=== PATIENT | female | born 1955 | race Caucasian/White ===

== ENCOUNTER 2017-02-17 07:21 | Day surgery (SDC) | payer BC ==
[2017-02-14 08:55] VITALS: BMI 38.0
[~2017-02-17 07:21] MED LIST: LACTATED RINGERS 1,000 ML IV SCH
[2017-02-17 07:34] VITALS: TEMP 98.2
[2017-02-17] MEDS ORDERED: PROPOFOL 10 MG/ML 20 ML VIAL IV ONE (08:14)
--- NOTE | 2017-02-17 08:42 | P.PCN ---
Date of Procedure: 02/17/17 Preoperative Diagnosis: Postoperative Diagnosis: Procedure(s) Performed: Procedure: Total colonoscopy. Preoperative diagnosis: Screening for neoplasia area Postoperative diagnosis: Diverticulosis with no evidence of acute diverticulitis , strictures, polyps or cancer. Preparation: HalfLytely prep. Sedation: Was provided by anesthesia. Brief clinical history: The patient is a 61-year-old female who is referred for this evaluation for screening for neoplasia. She had a prior exam many years back. At this time, she has no abdominal complaints, bleeding or anemia. No family history of colon cancer. Procedure: With the patient on her left lateral decubitus position and after informed consent and adequate sedation, the perianal area was inspected and it did not show any fissures or fistulas. There were no masses felt on digital rectal examination. The Olympus CFQ 160L video colonoscope was then inserted in the rectum in the usual fashion and advanced to the cecum. There were multiple diverticular orifices seen scattered along the length of the bowel mostly on the left side with fewer and smaller orifices around the hepatic flexure and on the right side. The mucosa appeared healthy. There was no evidence of acute diverticulitis or strictures. No polyps or tumors were seen. I retroflexed the endoscope in the rectum before the endoscope was withdrawn. The patient tolerated the procedure well. Plan: The patient was reassured. Discussed dietary measures. She will follow- up with you as planned and I recommended repeat exam in 10 years. Implants: Indications for Procedure: Operative Findings: Description of Procedure:
[2017-02-17] MEDS ORDERED: ONDANSETRON 4 MG/2 ML VIAL IVP ONE (08:58)
[2017-02-17 09:00] VITALS: RESP 16
[2017-02-17 09:30] VITALS: BP 131/82; PULSE 63
== END 2017-02-17 09:33 | disposition home or self-care (01) ==
LOC: ORWHC2ENDO 07:21
DX: Z12.11 Encounter for screening for malignant neoplasm of colon (principal); K57.30 Diverticulosis of large intestine without perforation or abscess without bleeding; E07.9 Disorder of thyroid, unspecified; I10 Essential (primary) hypertension; E78.5 Hyperlipidemia, unspecified; Z79.899 Other long term (current) drug therapy; Z88.0 Allergy status to penicillin
CPT/HCPCS: J2405; J2704; G0121

== ENCOUNTER → 2017-02-23 | Outpatient (CLI) | payer BC ==
--- NOTE | 2017-02-25 08:23 | MM ---
Reason for exam: screening (asymptomatic). Last mammogram was performed 1 year and 1 month ago. History: Patient is postmenopausal. Family history of breast cancer in maternal aunt. Physical Findings: A clinical breast exam by your physician is recommended on an annual basis and results should be correlated with mammographic findings. MG 3D Screening Mammo W/Cad Bilateral CC and MLO view(s) were taken. Prior study comparison: February 03, 2016, bilateral MG 3d screening mammo w/cad. September 02, 2014, bilateral MG screening mammo w CAD. August 31, 2012, bilateral digital screening mammo w/CAD. August 30, 2011, bilateral digital screening mammo w/CAD. The breast tissue is heterogeneously dense. This may lower the sensitivity of mammography. Stable distorted tissues superior right breast. No significant changes when compared with prior studies. ASSESSMENT: Negative, BI-RAD 1 RECOMMENDATION: Routine screening mammogram of both breasts in 1 year.
== END | disposition home or self-care (01) ==
LOC: RADMAMWWP 10:18
PROVIDERS: ATTEND Family Medicine
DX: Z12.31 Encounter for screening mammogram for malignant neoplasm of breast (principal)
CPT/HCPCS: 77063; G0202

== ENCOUNTER → 2018-08-17 | Outpatient (CLI) | payer MEDICARE ==
--- NOTE | 2018-08-24 14:16 | MM ---
Reason for exam: screening (asymptomatic). Last mammogram was performed 1 year and 6 months ago. History: Patient is postmenopausal. Family history of breast cancer in maternal aunt. MG 3D Screening Mammo W/Cad Bilateral CC and MLO view(s) were taken. Prior study comparison: February 23, 2017, bilateral MG 3d screening mammo w/cad. February 03, 2016, bilateral MG 3d screening mammo w/cad. There is a 10 x 4 mm equal oval possibly circumscribed density in the left subareolar position 2 cm from the nipple. These findings are changed when compared to prior studies. ASSESSMENT: Incomplete: need additional imaging evaluation, BI-RAD 0 RECOMMENDATION: Special view mammogram and treatment plan of the left breast.
== END | disposition home or self-care (01) ==
LOC: RADMAMWWP 07:46
PROVIDERS: ATTEND Family Medicine
DX: Z12.31 Encounter for screening mammogram for malignant neoplasm of breast (principal)
CPT/HCPCS: 77063; 77067

== ENCOUNTER → 2018-09-12 | Outpatient (CLI) | payer MEDICARE ==
--- NOTE | 2018-09-12 10:23 | MM ---
Reason for exam: additional evaluation requested from abnormal screening. Last mammogram was performed 1 month ago. History: Patient is postmenopausal. Family history of breast cancer in maternal aunt. Physical Findings: Nurse Summary: 0.5cm nodule in the left breast at nipple (nurse dw). MG 3D Work Up W/Cad LT Spot compression CC, spot compression MLO, and ML view(s) were taken of the left breast. Prior study comparison: August 17, 2018, bilateral MG 3d screening mammo w/cad. February 23, 2017, bilateral MG 3d screening mammo w/cad. Finding: There is a 8 mm oval mass in the subareolar position of the left breast, persists on additional views. These results were verbally communicated with the patient and result sheet given to the patient on 09/12/18. ASSESSMENT: Incomplete: need additional imaging evaluation, BI-RAD 0 RECOMMENDATION: Ultrasound of the left breast.
--- NOTE | 2018-09-12 10:25 | USB ---
Reason for exam: additional evaluation requested from abnormal screening. History: Patient is postmenopausal. Family history of breast cancer in maternal aunt. US Breast Workup Limited LT Left limited breast ultrasound including focal area of concern, retroareolar and axilla demonstrates a 1.0 x 0.8 x 0.4cm oval, irregular, mixed, hypoechoic lesion at 9 o'clock. These results were verbally communicated with the patient and result sheet given to the patient on 09/12/18. ASSESSMENT: Suspicious, BI-RAD 4 RECOMMENDATION: Ultrasound core biopsy of the left breast. (FNA +/- Core Biopsy) Called Dr. Asher with mammographic findings and has scheduled an appointment for the patient for 10/12/18 at 10:[address] Asher. Biopsy scheduled for 10/02/18 at 2 o'clock. PRELIMINARY REPORT CALLED AND FAXED TO DR. ASHER ON 09/12/18.
== END | disposition home or self-care (01) ==
LOC: RADMAMWWP 08:34
PROVIDERS: ATTEND Family Medicine
DX: R92.8 Other abnormal and inconclusive findings on diagnostic imaging of breast (principal)
CPT/HCPCS: 77065; 76642; G0279; 77061

== ENCOUNTER → 2018-10-02 | Day surgery (SDC) | payer MEDICARE ==
[2018-10-02 13:30] VITALS: RESP 16; BMI 38.7
[2018-10-02 14:33] VITALS: BP 129/80; PULSE 77; TEMP 98.2
--- NOTE | 2018-10-03 04:15 | USB ---
EXAMINATION TYPE: US biopsy breast VAD LT, Post procedure MG diagnostic mammo LT wo CAD DATE OF EXAM: 10/02/2018 CLINICAL HISTORY: 63-year-old female R92.8 Abnormal Mammogram. TECHNIQUE: Ultrasound guided core biopsy of left breast. COMPARISON: 09/12/2018 FINDINGS: The procedure of ultrasound guided core biopsy was explained to the patient. Benefits, alternatives, and risks were discussed. An informed consent was then obtained. The patient was placed in supine positioning for imaging and for the procedure. The overlying skin was prepped and draped in usual sterile fashion. Lidocaine buffered with bicarbonate was used as anesthetic into the skin and subcutaneous tissue up to area of concern in the 9:00 subareolar left breast. Under ultrasound guidance, a 13-gauge vacuum-assisted mammotome a lead biopsy gun was used to obtain 4 core samples. Following this, a ribbon clip was left in lesion. The patient tolerated the procedure well without any immediate complication. The patient was kept in the radiology department for short stay after the procedure and then discharged home in stable condition. Post procedure mammogram shows clip at the site of mammographic focal asymmetry. IMPRESSION: Successful, uncomplicated ultrasound guided core biopsy of area of concern in the left subareolar 9:00 position, full pathology results to follow. Pathology Results: Benign LEFT BREAST AT 9:00 POSITION, NEEDLE CORE BIOPSIES: Benign breast parenchyma consistent with fibroadenoma and fibrocystic changes. Recommendation Follow up mammogram of the left breast in 6 months. CHRISTEL
== END ==
LOC: RADUSWWP 12:47
PROVIDERS: ATTEND Surgery
DX: D24.2 Benign neoplasm of left breast (principal)
CPT/HCPCS: 19083; 77065; 88305; A4648; J2001

== ENCOUNTER → 2019-03-26 | Outpatient (CLI) | payer MEDICARE ==
--- NOTE | 2019-03-26 11:37 | MM ---
Reason for exam: follow-up at short interval from prior study. Last mammogram was performed 6 months ago. History: Patient is postmenopausal. Family history of breast cancer in maternal aunt at age 50. Benign US biopsy breast VAD LT of the left breast, October 02, 2018. Physical Findings: Nurse did not find any significant physical abnormalities on exam. MG 3D Diag Mammo W/Cad LT CC and MLO view(s) were taken of the left breast. Prior study comparison: October 02, 2018, left breast MG diagnostic mammo LT wo CAD. September 12, 2018, left breast MG 3d work up w/cad LT. The breast tissue is heterogeneously dense. This may lower the sensitivity of mammography. There is no discrete abnormality including area of concern. No significant new findings when compared with previous films. These results were verbally communicated with the patient and result sheet given to the patient on 03/26/19. ASSESSMENT: Negative, BI-RAD 1 RECOMMENDATION: Return to routine screening mammogram schedule for both breasts. Back on schedule for August 2019.
== END | disposition home or self-care (01) ==
LOC: RADMAMWWP 10:53
PROVIDERS: ATTEND Surgery
DX: R92.8 Other abnormal and inconclusive findings on diagnostic imaging of breast (principal)
CPT/HCPCS: 77061; 77065

== ENCOUNTER → 2019-10-31 | Outpatient (CLI) | payer MEDICARE ==
[~2019-10-31] MED LIST changes: -LACTATED RINGERS 1,000 ML IV SCH; +REGADENOSON 0.4 MG/5 ML SYRINGE IV ONE
--- NOTE | 2019-10-31 12:09 | NM ---
EXAMINATION TYPE: NM stress lexiscan cardiolite DATE OF EXAM: 10/31/2019 COMPARISON: NONE HISTORY: Chest pain TECHNIQUE: After the intravenous administration of 9.9 mCi Tc 99m Sestamibi - Cardiolite resting SPE CT images acquired 55 minutes post injection. The patient received 0.4mg Lexiscan, 25.8 mCi Tc 99m Sestamibi - Stress images obtained [address] injection FINDINGS: Review of stress and rest SPECT images demonstrates no distinct perfusion abnormality. Gated analysi s shows normal wall motion with an estimated left ventricular ejection fraction of 67 %. Abnormal TID of 1.27. IMPRESSION: Abnormal TID that can be seen in balanced 3 vessel ischemia or cardiomyopathy. No focal r eversible ischemic defect seen.
--- NOTE | 2019-10-31 18:20 | EST ---
EXERCISE STRESS DATE OF STUDY: 10/31/2019 AGE: 64 SEX: Female. HT: 5'6" WT: 210 pounds PROTOCOL: Lexiscan Cardiolite STAGE: DURATION OF EXERCISE: HEART RATE REST: 65 BLOOD PRESSURE REST: 142/82 MAXIMUM HEART RATE ACHIEVED: 105 MAXIMUM BLOOD PRESSURE: 158/92 85% MPHR: 131 100% MPHR: 154 METS: INDICATIONS: Chest pain, palpitations. CLINICAL INFORMATION: STRESS DATA: Heart rate 65, pressure 142/82 mmHg. Baseline EKG showed sinus mechanism with RBBB. The patient was given 0.4 mg of Lexiscan over 15 seconds per protocol. Max heart rate was 105 beats per minute. Maximum pressure was 158/92 mmHg. Clinically the patient did not have any symptoms and the EKG did not show any significant ST or T-wave abnormalities concerning for ischemia. CONCLUSION: 1. Nondiagnostic electrocardiogram stress testing in response to Lexiscan. 2. Please follow up on the Cardiolite portion on separate report from Radiology Department. MMODL / IJN: [id number] /
== END | disposition home or self-care (01) ==
LOC: RADNMMAIN 08:34
PROVIDERS: ATTEND Family Medicine
DX: R94.39 Abnormal result of other cardiovascular function study (principal); R00.2 Palpitations; R07.9 Chest pain, unspecified
CPT/HCPCS: 93017; 78452; A9500; J2785

== ENCOUNTER → 2020-05-09 | Outpatient (CLI) | payer MEDICARE ==
--- NOTE | 2020-05-12 13:57 | MM ---
Reason for exam: screening (asymptomatic). Last mammogram was performed 1 year and 1 month ago. History: Patient is postmenopausal. Family history of breast cancer in maternal aunt at age 50. Benign US biopsy breast VAD LT of the left breast, October 02, 2018. Physical Findings: A clinical breast exam by your physician is recommended on an annual basis and results should be correlated with mammographic findings. MG 3D Screening Mammo W/Cad Bilateral CC and MLO view(s) were taken. Prior study comparison: March 26, 2019, left breast MG 3d diag mammo w/cad LT. October 02, 2018, left breast MG diagnostic mammo LT wo CAD. The breast tissue is heterogeneously dense. This may lower the sensitivity of mammography. Finding: There is an equal density (isodense), lobulated mass located 6 cm from the nipple in the inner quadrant, middle position of the right breast on CC view. Previous mammotome biopsy in the left breast. There is a focal density left MLO view upper portion 5 cm from the nipple. New finding since March 26, 2019 and October 02, 2018. ASSESSMENT: Incomplete: need additional imaging evaluation, BI-RAD 0 RECOMMENDATION: Special view mammogram of both breasts. If lesion persists on supplemental views, image directed ultrasound is recommended. [facility] will attempt to contact patient to return for supplemental views and ultrasound if indicated.
== END | disposition home or self-care (01) ==
LOC: RADMAMWWP 14:42
PROVIDERS: ATTEND Family Medicine
DX: Z12.31 Encounter for screening mammogram for malignant neoplasm of breast (principal)
CPT/HCPCS: 77063; 77067

== ENCOUNTER → 2020-05-16 | Outpatient (CLI) | payer MEDICARE ==
--- NOTE | 2020-05-16 10:24 | MM ---
Reason for exam: additional evaluation requested from abnormal screening. Last mammogram was performed less than 1 month ago. History: Patient is postmenopausal. Family history of breast cancer in maternal aunt at age 50. Benign US biopsy breast VAD LT of the left breast, October 02, 2018. Physical Findings: Nurse did not find any significant physical abnormalities on exam. MG 3D Work Up W/Cad FABIO Bilateral spot compression CC and spot compression MLO view(s) were taken. Prior study comparison: May 09, 2020, bilateral MG 3d screening mammo w/cad. March 26, 2019, left breast MG 3d diag mammo w/cad LT. There is no discrete abnormality including area of concern. These results were verbally communicated with the patient and result sheet given to the patient on 05/16/20. ASSESSMENT: Probably benign, BI-RAD 3 RECOMMENDATION: Follow-up diagnostic mammogram of both breasts in 6 months.
== END | disposition home or self-care (01) ==
LOC: RADMAMWWP 09:31
PROVIDERS: ATTEND Family Medicine
DX: R92.8 Other abnormal and inconclusive findings on diagnostic imaging of breast (principal)
CPT/HCPCS: 77066; G0279; 77062

== ENCOUNTER → 2020-12-03 | Outpatient (CLI) | payer MEDICARE ==
--- NOTE | 2020-12-03 09:47 | BD ---
EXAMINATION TYPE: Axial Bone Density DATE OF EXAM: 12/03/2020 COMPARISON: NONE CLINICAL HISTORY: Height: 5 FT 6 IN Weight: 187 FRAX RISK QUESTIONS: Alcohol (3 or more units per day): NO Family History (Parent hip fracture): NO Glucocorticoids (More than 3mos): NO (Ex: prednisone, prednisolone, methylprednisolone, dexamethasone, and hydrocortisone). History of Fracture in Adulthood: NO Secondary Osteoporosis: 1. Type 1 Diabetes: NO 2. Hyperthyroidism: NO 3. Menopause before 45: NO 4. Malnutrition: NO 5. Chronic liver disease: NO Rheumatoid Arthritis: NO Current Tobacco Use: NO RISK FACTORS HISTORY OF: Surgery to Spine/Hip(right/left)/Wrist (right/left): NO Family History of Osteoporosis: YES Active: NO Diet low in dairy products/other sources of calcium: NO Postmenopausal woman: AGE 45 Take estrogen and/or progesterone medications: NO Lost more than 2 inches in height since high school: NO MEDICATIONS: Thyroid Medications: YES Which medication: LEVOTHYROXINE How Long: SINCE AGE 40 Additional Medications: Additional History: LEVOTHYROXINE,STATIN, EXAM MEASUREMENTS: Bone mineral densitometry was performed using the ASP64 System. Bone mineral density as measured about the Lumbar spine is: ----- L1-L4(G/cm2): 1.390 T Score Values are as follows: ----- L2: 1.7 ----- L3: 2.2 ----- L4: 2.5 ----- L1-L4: 1.8 Bone mineral density has: INCREASED 9.2 % since study of: 2014 Bone mineral density about the R hip (g/cm2): 1.021 Bone mineral density about the L hip (g/cm2): 0.965 T Score values are as follows: -----R Neck: -0.1 -----L Neck: -0.5 -----R Total: -0.6 -----L Total: 0.0 Bone mineral density has: DECREASED -7.3 % since study of: 2014 IMPRESSION: No evidence for osteoporosis or osteopenia. NOTE: T-SCORE=SD OF THE YOUNG ADULT MEAN.
== END | disposition home or self-care (01) ==
LOC: RADBDWWP 08:21
PROVIDERS: ATTEND Family Medicine
DX: M81.8 Other osteoporosis without current pathological fracture (principal)
CPT/HCPCS: 77080

== ENCOUNTER → 2020-12-03 | Outpatient (CLI) | payer MEDICARE ==
--- NOTE | 2020-12-03 10:05 | MM ---
Reason for exam: follow-up at short interval from prior study. Last mammogram was performed 7 months ago. History: Patient is postmenopausal. Family history of breast cancer in maternal aunt at age 50. Benign US biopsy breast VAD LT of the left breast, October 02, 2018. Physical Findings: Nurse did not find any significant physical abnormalities on exam. MG 3D Diag Mammo W/Cad FABIO Bilateral CC and MLO view(s) were taken. Prior study comparison: May 16, 2020, bilateral MG 3d work up w/cad FABIO. May 09, 2020, bilateral MG 3d screening mammo w/cad. The breast tissue is heterogeneously dense. This may lower the sensitivity of mammography. Stable scattered calcifications. There is no discrete abnormality including area of concern. These results were verbally communicated with the patient and result sheet given to the patient on 12/03/20. ASSESSMENT: Benign, BI-RAD 2 RECOMMENDATION: Routine screening mammogram of both breasts in 1 year.
== END | disposition home or self-care (01) ==
LOC: RADMAMWWP 08:19
PROVIDERS: ATTEND Family Medicine
DX: Z78.0 Asymptomatic menopausal state (principal); Z80.3 Family history of malignant neoplasm of breast
CPT/HCPCS: 77066; G0279; 77062; 77080; 84439; 84443

== ENCOUNTER → 2022-01-01 | Outpatient (CLI) | payer MEDICARE | LOC: RADMAMWWP 09:14 | PROVIDERS: ATTEND Family Medicine | DX: Z12.31 Encounter for screening mammogram for malignant neoplasm of breast (principal) | CPT/HCPCS: 77063; 77067 ==

== ENCOUNTER → 2022-06-11 | Outpatient (CLI) | payer MEDICARE ==
--- NOTE | 2022-06-11 12:05 | CT ---
EXAMINATION TYPE: CT abdomen pelvis wo con CT DLP: 848.50 mGycm, Automated exposure control for dose reduction was used. DATE OF EXAM: 06/11/2022 11:34 AM COMPARISON: None CLINICAL INDICATION:Female, 66 years old with history of R31.9 HEMATURIA, UNSPECIFIED; HEMATURIA and Rt flank pain TECHNIQUE: Axial CT of the abdomen and pelvis. Sagittal and coronal reformats were created on a [employer] workstation. Contrast used: None Oral contrast used: without Oral Contrast FINDINGS: LOWER CHEST: Unremarkable ABDOMEN LIVER: Unremarkable GALLBLADDER AND BILE DUCTS: The gallbladder is surgically absent. PANCREAS: Unremarkable. SPLEEN: Unremarkable. ADRENAL GLANDS: Unremarkable. KIDNEYS AND URETERS: No evidence of hydronephrosis or renal calculus. The ureters are unremarkable. PELVIS BLADDER: Unremarkable REPRODUCTIVE: Right ovarian 1.9 cm the left. ABDOMEN & PELVIS STOMACH AND BOWEL: No evidence of bowel obstruction. Colonic diverticula are seen scattered throughou t the colon. PERITONEUM: No evidence of pneumoperitoneum or free fluid. VASCULATURE: No evidence of aortic aneurysm. MUSCULOSKELETAL: No acute osseous abnormalities multilevel disc degeneration changes throughout the s pine with at least mild spinal canal stenosis seen at L4-L5 secondary to osseous spurring. LYMPH NODES: No gross evidence for lymphadenopathy. SOFT TISSUE/ABDOMINAL WALL: Anterior ventral wall hernia containing fat measuring up to 20 mm at the neck. Small amount of fat stranding present. IMPRESSION: 1. No evidence of obstructive uropathy or renal calculus identified. No acute abdominal process. 2. Ventral hernia containing fat in the right mid abdomen. Mild inflammation changes noted. 3. Clonic diverticulosis. 4. Small hiatal hernia.
== END | disposition home or self-care (01) ==
LOC: RADCTMAIN 11:02
PROVIDERS: ATTEND Family Medicine
DX: K43.9 Ventral hernia without obstruction or gangrene (principal); K44.9 Diaphragmatic hernia without obstruction or gangrene; K57.30 Diverticulosis of large intestine without perforation or abscess without bleeding
CPT/HCPCS: 74176

== ENCOUNTER → 2023-01-04 | Outpatient (CLI) | payer MEDICARE ==
--- NOTE | 2023-01-05 08:47 | MM ---
Reason for Exam: Screening (asymptomatic). Last screening mammogram was performed 12 month(s) ago. Patient History: Menarche at age 8. First Full-Term at age 20. Hysterectomy at age 48. Postmenopausal. 10/02/2018, Benign Core Biopsy on the left side. Maternal aunt had breast cancer, age 50. Risk Values: Ree 5 year model risk: 2.0%. NCI Lifetime model risk: 6.1%. Prior Study Comparison: 05/16/2020 Bilateral Diagnostic Mammogram, [facility]. 12/03/2020 Bilateral Diagnostic Mammogram, [facility]. 01/01/2022 Bilateral MG 3D screening mammo w/cad, [facility]. Tissue Density: The breast tissue is heterogeneously dense. This may lower the sensitivity of mammography. Findings: Analyzed By CAD. Left breast biopsy clip. There is no suspicious group of microcalcifications or new suspicious mass in either breast. Overall Assessment: Benign, BI-RAD 2 Management: Screening Mammogram of both breasts in [address] [facility] will attempt to contact patient to return for supplemental views and ultrasound if indicated. Patient should continue monthly self-breast exams. A clinical breast exam by your physician is recommended on an annual basis. This exam should not preclude additional follow-up of suspicious palpable abnormalities. Note on Ree scores and lifetime risk: 1. A Ree score greater than 3% is considered moderate risk. If this is the case, consider specialist referral to assess eligibility for a risk reducing agent. 2. If overall lifetime risk for the development of breast cancer is 20% or higher, the patient may qualify for future screening with alternating mammogram and breast MRI. Electronically signed and approved by: Ronald Beth DO
== END | disposition home or self-care (01) ==
LOC: RADMAMWWP 09:08
PROVIDERS: ATTEND Family Medicine
DX: Z12.31 Encounter for screening mammogram for malignant neoplasm of breast (principal); Z78.0 Asymptomatic menopausal state; Z80.3 Family history of malignant neoplasm of breast
CPT/HCPCS: 77063; 77067

== ENCOUNTER → 2023-12-14 | Outpatient (CLI) | payer MEDICARE ==
--- NOTE | 2023-12-14 14:29 | CT ---
EXAMINATION TYPE: CT brain wo con DATE OF EXAM: 12/14/2023 COMPARISON: None INDICATION: chronic headache x2 months DLP: 1090.40 mGycm, Automated exposure control for dose reduction was used. CONTRAST: None CT of the brain is performed utilizing 3 mm thick sections through the posterior fossa and 3 mm thick sections through the remaining calvarium. Study is performed within 24 hours of arrival to the hosp [facility]. No abnormal hyperdensity is present to suggest an acute intracranial hemorrhage. No mass lesion is evident. No acute infarcts are evident. Ventricles and sulci are appropriate for the patient age. Paranasal sinuses and mastoid air cells within the [id number] are clear. Hyperostosis frontalis internus is present, normal variant. IMPRESSION: 1. No acute intracranial process. Follow-up MRI can be performed as clinically indicated.
== END | disposition home or self-care (01) ==
LOC: RADCTMAIN 12:22
PROVIDERS: ATTEND Family Medicine
DX: R51.9 Headache, unspecified (principal)
CPT/HCPCS: 70450

== ENCOUNTER 2024-01-17 09:21 | Day surgery (SDC) | payer MEDICARE ==
[2024-01-13 11:30] VITALS: BMI 35.8
[~2024-01-17 09:21] MED LIST changes: +Pre Op ABX Message 1 EACH MISC MISCELLANE ONE; -REGADENOSON 0.4 MG/5 ML SYRINGE IV ONE
[2024-01-17] MEDS ORDERED: HYDROmorphone 0.5 MG/0.5 ML SYRINGE IVP PRN (09:36)
[2024-01-17] MEDS: IV FLUID CONTINUATION 1,000 ML IV ONE (09:55)
[2024-01-17] MEDS: LIDOCAINE 1% (10MG/ML) FOR IV START INTRADERMA PRN (09:55)
[2024-01-17] MEDS: LACTATED RINGERS 1,000 ML IV SCH (09:55)
[2024-01-17] MEDS: ONDANSETRON 4 MG/2 ML VIAL IVP ONE (10:03)
[2024-01-17 10:11] VITALS: RESP 16; TEMP 98.8
[2024-01-17] MEDS ORDERED: KETAMINE HCL IN 0.9 % NACL 50 MG/5 ML SYRINGE ONE (10:34)
[2024-01-17] MEDS ORDERED: MIDAZOLAM 2 MG/2 ML VIAL ONE (10:34)
[2024-01-17] MEDS ORDERED: PROPOFOL 10 MG/ML 20 ML VIAL IV ONE (10:34)
[2024-01-17] MEDS ORDERED: fentaNYL (PF) 50 MCG/ML 2 ML AMP ONE (10:34)
[2024-01-17] MEDS: LIDOCAINE 1% INJ 10MG/ML (20 ML MDV) SQ ONE (10:58)
--- NOTE | 2024-01-17 11:22 | P.OP ---
Date of Procedure: 01/17/24 Description of Procedure: Preoperative diagnosis: Headaches, rule out temporal arteritis Postoperative diagnosis: Same Procedure:Right temporal artery biopsy Surgeon: Codi Espinoza D.O. EBL: Less than 5 mL IV fluids: See anesthesia records Urine output: Not measured Drains: None Complications: None immediately apparent Condition: Stable to recovery Operative indication and findings: Patient a 68-year-old female who recently began having increasing and worsening headaches. Through the evaluation and workup was recommended undergo temporal artery biopsy. Risks and benefits were discussed. They present for intervention today. Procedure in detail: The patient was taken to the operative suite and placed in supine position. The side of the face was prepped and draped in usual sterile fashion. A preprocedure timeout was performed, all parties are in agreement. The area of the greatest pulse was anesthetized at the temporal region. Incision was made and carried onto the subcuticular tissue using electrocautery. The artery was identified. It was dissected free proximally and distally. It was ligated with 3-0 silk ties. The 1.5 cm portion of the artery was excised and sent for pathology. The area was then irrigated. Hemostasis was achieved electrocautery. The deep dermal tissues were reapproximated with interrupted sutures of 3-0 Vicryl. The skin was reprepped with running 5-0 Monocryl in subcu cuticular fashion. Skin glue was placed Plan - Discharge Summary Discharge Rx Participant: Yes New Discharge Prescriptions: No Action Levothyroxine Sodium [Synthroid] 224 mcg PO SUTUWEFRSA Triamterene-Hctz 37.5-25Mg [Dyazide 37.5-25 Capsule] 1 each PO QAM Simvastatin [Zocor] 20 mg PO HS Omeprazole [PriLOSEC] 20 mg PO AC-BRKFST Levothyroxine Sodium [Synthroid] 112 mcg PO MOTH Advil(Unknown Dose) 1 dose PO Q8H Centrum (Unknown Dose) 1 dose PO QAM Discharge Medication List Levothyroxine Sodium [Synthroid] 224 mcg PO SUTUWEFRSA 06/29/14 [History] Simvastatin [Zocor] 20 mg PO HS 06/29/14 [History] Triamterene-Hctz 37.5-25Mg [Dyazide 37.5-25 Capsule] 1 each PO QAM 06/29/14 [History] Levothyroxine Sodium [Synthroid] 112 mcg PO MOTH 09/19/18 [History] Omeprazole [PriLOSEC] 20 mg PO AC-BRKFST 09/19/18 [History] Advil(Unknown Dose) 1 dose PO Q8H 01/13/24 [History] Centrum (Unknown Dose) 1 dose PO QAM 01/13/24 [History] Follow up Appointment(s)/Referral(s): Codi Espinoza DO [STAFF PHYSICIAN] - 10 Days Activity/Diet/Wound Care/Special Instructions: May resume regular diet. Resume home medications as previous. Resume regular activity as previous. Do not wash hair for 2 to 3 days. When washing, do so gingerly. Discharge Disposition: HOME SELF-CARE
[2024-01-17 12:08] VITALS: BP 124/76; PULSE 64
== END 2024-01-17 12:09 | disposition home or self-care (01) ==
LOC: OR 09:21
PROVIDERS: ATTEND Surgery
DX: R51.9 Headache, unspecified (principal); I10 Essential (primary) hypertension; E78.5 Hyperlipidemia, unspecified; E03.9 Hypothyroidism, unspecified; M19.90 Unspecified osteoarthritis, unspecified site; K21.9 Gastro-esophageal reflux disease without esophagitis; F10.90 Alcohol use, unspecified, uncomplicated; Z87.891 Personal history of nicotine dependence; Z88.0 Allergy status to penicillin; Z79.899 Other long term (current) drug therapy; Z79.890 Hormone replacement therapy
CPT/HCPCS: 37609; J2250; J2405; J2001; J3010; J2704; 88305

== ENCOUNTER → 2024-02-02 | Outpatient (CLI) | payer MEDICARE ==
--- NOTE | 2024-02-03 18:46 | MM ---
Reason for Exam: Screening (asymptomatic). Last mammogram was performed 1 year(s) and 1 month(s) ago. Patient History: Menarche at age 8. First Full-Term at age 20. Hysterectomy at age 48. Postmenopausal. 10/02/2018, Benign Core Biopsy on the left side. Maternal aunt had breast cancer, age 50. Risk Values: Ree 5 year model risk: 2.0%. NCI Lifetime model risk: 5.9%. Prior Study Comparison: 08/17/2018 Bilateral Screening Mammogram, [facility]. 10/02/2018 Left Diagnostic Mammogram, [facility]. 03/26/2019 Left Diagnostic Mammogram, [facility]. 05/09/2020 Bilateral Screening Mammogram, [facility]. 05/16/2020 Bilateral Diagnostic Mammogram, [facility]. 12/03/2020 Bilateral Diagnostic Mammogram, [facility]. 01/01/2022 Bilateral MG 3D screening mammo w/cad, [facility]. 01/04/2023 Bilateral MG 3D screening mammo w/cad, [facility]. Tissue Density: The breasts are heterogeneously dense, which may obscure small masses. Findings: Analyzed By CAD. The pattern is symmetrical. Core marker is within the left breast. Benign calcifications present bilaterally. No significant interval change is evident.No suspicious groups of microcalcifications, spiculated or lobular masses, architectural distortion or other secondary signs of malignancy are mammographically apparent. Overall Assessment: Benign, BI-RAD 2 Management: Screening Mammogram of both breasts in 1 year. A negative mammogram report should not preclude additional follow up of suspicious palpable abnormalities. Patient should continue monthly self breast exam. A clinical breast exam by your physician is recommended on an annual basis and results should be correlated with mammographic findings. Note on Ree scores and lifetime risk: 1. A Ree score greater than 3% is considered moderate risk. If this is the case, consider specialist referral to assess eligibility for a risk reducing agent. 2. If overall lifetime risk for the development of breast cancer is 20% or higher, the patient may qualify for future screening with alternating mammogram and breast MRI. Electronically signed and approved by: Josh Candelario D.O. Radiologis
== END | disposition home or self-care (01) ==
LOC: RADMAMWWP 10:28
PROVIDERS: ATTEND Family Medicine
DX: Z12.31 Encounter for screening mammogram for malignant neoplasm of breast (principal); Z78.0 Asymptomatic menopausal state; Z80.3 Family history of malignant neoplasm of breast
CPT/HCPCS: 77063; 77067

== ENCOUNTER → 2024-11-19 | Outpatient (CLI) | payer MEDICARE ==
[2024-11-19 18:36] LABS: Urine Alcohol Negative (Negative); Urine Barbiturate Negative (Negative); Urine Cocaine Negative (Negative); Urine Methadone Negative (Negative); Urine Opiates Negative (Negative); Urine Phencyclidine Negative (Negative)
== END | disposition home or self-care (01) ==
LOC: LABWHC1 08:45
PROVIDERS: ATTEND Orthopaedic Surgery
DX: M48.061 Spinal stenosis, lumbar region without neurogenic claudication (principal)
CPT/HCPCS: 36415; 80306; 83036; 86850; 86900; 86901; 87070